=== PATIENT | female | born 1970 | race Caucasian/White ===

== ENCOUNTER 2017-11-08 14:57 | Emergency (ER) | payer BC, OTHER ==
[~2017-11-08 14:57] MED LIST: ISOVUE-370 76%-LOCM 1 ML ONE
[2017-11-08 15:35] LABS: #Basophils 0.2 thou/uL (0.0-0.2); #Eosinphils 0.2 thou/uL (0.0-0.7); #Lymphocytes 3.6 thou/uL (1.20-3.40); #Monocytes 0.7 thou/uL (0.11-0.59); #Neutrophils 5.9 thou/uL (1.40-6.50); %Basophils 1.5 % (0.0-1.0); %Eosinophils 2.3 % (0.0-10.0); %Lymphocytes 34.1 % (21.0-51.0); %Neutrophils 55.1 % (42.0-75.0); Hemoglobin 16.6 g/dL (12.0-16.0); Mean Corpuscular HGB CONC 34.8 g/dL (32.0-36.0); Mean Platelet Volume 6.6 fL (7.4-10.4); Platelet Count 384 thou/uL (130-400); Red Blood Cell (RBC) Count 5.18 mill/uL (4.20-5.40); White Blood Cell (WBC) Count 10.6 thou/uL (4.8-10.8)
[2017-11-08] MEDS ORDERED: Ondansetron HCl/PF 4 MG/2 ML Vial ONE ×2 (15:43→15:44)
[2017-11-08 15:51] LABS: ALT (SGPT) 12 U/L (8-55); AST (SGOT) 20 U/L (5-34); Albumin 4.4 g/dL (3.5-5.0); Alkaline Phosphatase 80 U/L (40-150); Anion Gap 14 mmol/L (10-20); BUN (Urea Nitrogen) 12 mg/dL (7.0-18.7); Bilirubin, Total 0.5 mg/dL (0.2-1.2); Calc. Creatinine Clearance 0 mL/min (70-130); Calcium 9.3 mg/dL (7.8-10.44); Carbon Dioxide 23 mmol/L (22-29); Chloride 105 mmol/L (98-107); Estimated GFR-MDRD 69; Globulin 3.8 g/dL (2.4-3.5); Glucose 100 mg/dL (70-105); Lipase 43 U/L (8-78); Potassium 3.6 mmol/L (3.5-5.1); Protein, Total 8.2 g/dL (6.0-8.3); Sodium 138 mmol/L (136-145)
[2017-11-08 15:54] LABS: CKMB 1.5 ng/mL (0-6.6); Troponin I Less than 0.010 ng/mL (< 0.028)
--- NOTE | 2017-11-08 15:59 | CT ---
CT ABDOMEN AND PELVIS WITH IV CONTRAST: HISTORY: Epigastric pain associated with nausea and 2 episodes of vomiting. The patient's surgical history in cludes appendectomy, cholecystectomy, and multiple surgeries for hernia repair. FINDINGS: The lung motta are clear. The patient is status post appendectomy, cholecystectomy, and abdominal wal l repair. There is a calcified granuloma in the right lung base. No free air, free fluid, or lymphadenopathy i s seen in the abdomen or pelvis. The liver, spleen, pancreas, adrenal glands, and right kidney are n ormal. There are cysts in the left kidney, the largest measuring 3.5 cm. A uterus is present. There is a 6.5 cm cystic left adnexal mass. The small bowel loops are not abno rmally dilated. There is no evidence of aneurysmal dilatation of the abdominal aorta. No acute osse ous abnormalities are seen. The colon appears decompressed. IMPRESSION: 1. Left renal cysts. 2. A 6.5 cm left adnexal cystic mass, likely ovarian. Gynecologic consultation is recommended. POS: [facility]
== END 2017-11-08 17:33 | disposition home or self-care (01) ==
LOC: ERS 14:57
DX: R10.13 Epigastric pain (principal); R11.2 Nausea with vomiting, unspecified; M06.9 Rheumatoid arthritis, unspecified; F17.210 Nicotine dependence, cigarettes, uncomplicated
CPT/HCPCS: 74177; 80053; 82553; 83690; 84484; 85025; 93005; 96374; J2405